=== PATIENT | female | born 1930 | race Caucasian/White ===

== ENCOUNTER 2018-05-01 14:52 | Observation (INO) | payer OTHER ==
[2018-05-01 15:12] VITALS: BMI 44.8
--- NOTE | 2018-05-01 15:35 | PDOC ---
History of Present Illness - General Chief Complaint: Revisit,Radiology Variance Stated Complaint: LOW BACK PAIN Time Seen by Provider: 05/01/18 15:31 - History of Present Illness Initial Comments: 05/01/18 15:36 87 yo F w a hx of HLD, htn, depression, colon cancer, skin cancer, CVA, dementia, hernia repairs, left ankle fracture was sent here by Dr. Rubio to get admitted because a lumbar L1 compression fracture was found on X-ray yesterday. This past Sunday she was engaging in physical activities and was moving items around her house. She says her back pain began after bending down to supervisor opening and picking a heavy bag of clothing from her closet. She is currently experiencing lower midback pain rated 6/10 with mild tingling sensations in both her legs and feet. She has no difficulty in her ability to urinate or move her bowels. She has taken tylenol for the pain. She denies taking any recent steroids. Patient denies recent fevers or other recent traumatic events. She also reports 3 weeks of lower extremity swelling and edema. Denies chest pain, SOB, or any breathing difficulty. 05/01/18 15:37 05/01/18 15:44 05/01/18 15:52 05/01/18 16:09 Past History - Past Medical History Allergies/Adverse Reactions: Allergies Allergy/AdvReac Type Severity Reaction Status Date / Time No Known Allergies Allergy Verified 05/01/18 15:05 Home Medications: Ambulatory Orders Clonazepam [Klonopin] 1 mg PO PRN 07/03/16 Clopidogrel Bisulfate [Plavix] 300 mg PO MOWEFRSA 07/03/16 Pantoprazole Sodium 40 mg PO MOWEFR 07/03/16 Acetaminophen [Tylenol .Regular Strength -] 650 mg PO Q4H PRN #0 tablet Albuterol Sulfate Inhaler - [Ventolin HFA Inhaler -] 1 - 2 inh PO Q4H PRN #1 inhaler 07/08/16 Aspirin [Aspir 81] 81 mg PO MOWEFR 11/14/16 Cholecalciferol (Vitamin D3) [Vitamin D3] 5,000 unit PO DAILY capsule 11/14/16 Anemia: No Asthma: No Cancer: Yes (COLON) Cardiac Disorders: No CVA: Yes (CVA 2009 TIA 1995) COPD: No CHF: No Dementia: No Diabetes: No GI Disorders: Yes (COLON CANCER) Disorders: No HTN: Yes Hypercholesterolemia: Yes Liver Disease: No Seizures: No Thyroid Disease: No Other medical history: BACK PAIN - Surgical History Abdominal Surgery: Yes (HERNIA) Appendectomy: Yes Cardiac Surgery: No Cholecystectomy: No Lung Surgery: No Neurologic Surgery: No Orthopedic Surgery: No - Immunization History Immunization Up to Date: Yes - Suicide/Smoking/Psychosocial Hx Smoking History: Never smoked Have you smoked in the past 12 months: No Hx Alcohol Use: No Drug/Substance Use Hx: No Substance Use Type: None Hx Substance Use Treatment: No Review of Systems - Review of Systems Comments:: 05/01/18 15:58 CONSTITUTIONAL: Absent: fever, chills, diaphoresis, generalized weakness, malaise, loss of appetite HEENT: Absent: rhinorrhea, nasal congestion, throat pain, throat swelling, difficulty swallowing, mouth swelling, ear pain, eye pain, visual Changes CARDIOVASCULAR: Absent: chest pain, syncope, palpitations, irregular heart rate, lightheadedness , peripheral edema RESPIRATORY: Absent: cough, shortness of breath, dyspnea with exertion, orthopnea, wheezing, stridor, hemoptysis GASTROINTESTINAL: Positive: Abdominal pain, abdominal distension. Absent: nausea, vomiting, diarrhea, constipation, melena, hematochezia GENITOURINARY: Absent: dysuria, frequency, urgency, hesitancy, hematuria, flank pain, genital pain MUSCULOSKELETAL: Positive: Left leg pain, back pain, ankle swelling Absent: myalgia, arthralgia SKIN: Absent: rash, itching, pallor HEMATOLOGIC/IMMUNOLOGIC: Absent: easy bleeding, easy bruising, lymphadenopathy, frequent infections ENDOCRINE: Absent: unexplained weight gain, unexplained weight loss, heat intolerance, cold intolerance NEUROLOGIC: Positive: paresthesias Absent: headache, focal weakness dizziness, unsteady gait, seizure, mental status changes, bladder or bowel incontinence PSYCHIATRIC: Absent: anxiety, depression, suicidal or homicidal ideation, hallucinations. *Physical Exam - Vital Signs Last Vital Signs Temp Pulse Resp BP Pulse Ox 98.6 F 88 18 170/80 92 L 05/01/18 14:53 05/01/18 14:53 05/01/18 14:53 05/01/18 14:53 05/01/18 14:53 - Physical Exam Comments: 05/01/18 16:00 Back: There is spinal TTP around the L1 vertebrae. No sacral or thoracic TTP. GENERAL: Well developed, well nourished. Awake and alert. No acute distress. HEENT: Normocephalic, atraumatic. PERRLA, EOMI. No conjunctival pallor. Sclera are non- icteric. Moist mucous membranes. Oropharynx is clear. NECK: Supple. Full ROM. No JVD. Carotid pulses 2+ and symmetric, without bruits. No thyromegaly. No lymphadenopathy. CARDIOVASCULAR: Regular rate and rhythm. No murmurs, rubs, or gallops. Distal pulses are 2+ and symmetric. PULMONARY: No evidence of respiratory distress. Lungs clear to auscultation bilaterally. No wheezing, rales or rhonchi. ABDOMINAL: Abdomen is mildly tender and mildly distended. She has no rebound or guarding. No organomegaly. Normoactive bowel sounds. MUSCULOSKELETAL Normal range of motion at all joints. No bony deformities or tenderness. No CVA tenderness. EXTREMITIES: There is bilateral ankle and wrist swelling with 1+ edema. No cyanosis. No clubbing. No calf tenderness. SKIN: Warm and dry. Normal capillary refill. No rashes. No jaundice. NEUROLOGICAL: CN 2-12 grossly intact. Alert, awake, appropriate. No motor deficits in the in face, upper extremities and lower extremities. Normal speech. Toes are down-going bilaterally. Gait is normal without ataxia. PSYCHIATRIC: Cooperative. Good eye contact. Appropriate mood and affect. ED Treatment Course - LABORATORY CBC & Chemistry Diagram: 05/01/18 15:35 05/01/18 15:35 Medical Decision Making - Medical Decision Making 05/01/18 16:04 87 yo F w a pmh of hlp, htn, depression, colon cancer, skin cancer, stroke with residual weakness, dementia, hernia repairs, and ankle fracture here with a compression fracture found on outpatient X-ray. She was sent in by Dr. Rubio to get a CT scan and get admitted. To the best of the patient's knowledge her cancers are in remission. There is concern for new or recurring malignancy given her possible compression fracture. Given the mechanism, of lifting a heavy bag of clothing, we want to rule out whether this was a traumatic fracture or a pathologic fracture. Plan basic labs, CT scan to assess for possible metastatic lesions and assess other thoracic, lumbar and sacral vertebrae, admit. 05/01/18 16:05 05/01/18 16:11 *DC/Admit/Observation/Transfer Diagnosis at time of Disposition: Compression fracture - Discharge Dispostion Condition at time of disposition: Stable Decision to Admit order: Yes - Referrals Referrals: Yolie Rubio MD [Primary Care Provider] - - Patient Instructions - Post Discharge Activity
[2018-05-01 15:40] LABS: BASO % 1.9 % (0-2.0); EOS % 3.5 % (0-4.5); HEMATOCRIT 38.7 % (32.4-45.2); HEMOGLOBIN 12.8 GM/dl (10.7-15.3); LYMPH % 32.6 % (8-40); MCH 27.3 pg (25.7-33.7); MEAN CELL VOLUME 82.6 fl (80-96); MEAN PLT VOLUME 8.3 fl (7.5-11.1); MONO % 6.8 % (3.8-10.2); NEUT % 55.2 % (42.8-82.8); PLATELET COUNT 268 K/MM3 (134-434); RBC 4.68 M/mm3 (3.60-5.2); RDW 14.5 % (11.6-15.6); WHITE BLOOD COUNT 10.9 K/mm3 (4.0-10.8)
[2018-05-01] MEDS ORDERED: oxyCODONE HCL 5 MG TABLET PO ONE (15:51)
--- NOTE | 2018-05-01 15:51 | PDOC ---
Attending Attestation - HPI HPI: 05/01/18 15:52 Alex Grayson - 87 year old female with PMHx of hlp, htn, depression, colon cancer, skin cancer, stroke with residual weakness, dementia, hernia repairs presenting with back and hip pain, XR lumbar spine 04/30/18 significant for L1 compression fracture and L4/5 subluxation and lordosis. The patients daughter describes her pain as localized to the mid-spinal, lumbar and ranking a 5/10. Approximately 4 days ago, the patient was bending down and moving a heavy bag of clothes in her closer when her symptoms onset. She denies any urinary and bowel incontinence. She denies any recent chest pain or shortness of breath. She denies any recent fever, chills, nausea, or vomiting. The patient visited her PCP yesterday for her symptoms and had an x-ray and lab work done. The patient was sent in by her PCP, Dr. Rubio, for a CT spine, admission, and further evaluation. ROS is positive for lumbar back pain and paresthesias. Allergies: NKA Past surgical history: Hernia repair and appendectomy. Social history: Nonsmoker. Denies EtOH use and recreational drug use. Primary Care Physician: Dr. Rubio - Physicial Exam PE: 05/01/18 15:52 General: Well appearing, awake and alert, NAD. HEENT: NCAT, PERRL, EOMI, clear conjunctiva, anicteric, moist mucus membranes, clear oropharynx, no oral lesions.. Neck: neck supple, FROM Chest: no chest wall tenderness Resp: CTAB, normal and even respirations, no respiratory distress CVS: RRR, 2+ peripheral pulses throughout, 3+ bilateral pitting peripheral edema Abdomen: soft, NTND Back: normal inspection and ROM, +Lumbar spine midline tenderness MSK: bilateral pitting pretibial edema, ONEIL x4, ROM intact. No clubbing or cyanosis. normal bulk and tone. Neuro: alert, oriented appropriately; no focal neurologic deficits. SILT, 5/5 distal and prox strength in all extrem. Skin: warm and well perfused, cap refill <2 sec, normal color <Horace Vigil - Last Filed: 05/01/18 15:52> - Resident Resident Name: Wang King - ED Attending Attestation I have performed the following: I have examined & evaluated the patient, The case was reviewed & discussed with the resident, I agree w/resident's findings & plan, Exceptions are as noted - Medical Decision Making 05/01/18 15:49 A portion of this note was documented by scribe services under my direction. I have reviewed the details of the note, within reason, and agree with the documentation with the following case summary and management plan written by me. MDM: Alex Grayson - 87 year old female with PMHx of hlp, htn, depression, colon cancer, skin cancer, stroke with residual weakness, dementia, hernia repairs presenting with back and hip pain, XR lumbar spine 04/30/18 significant for L1 compression fracture and L4/5 subluxation and lordosis. Vital signs stable, pain to be controlled additionally with PO oxycodone. SpO2 92% on RA, but no respiratory distress, lungs clear, will check CXR and repeat VS. CBC and CMP yesterday reviewed, mild hyponatremia, but otherwise wnl. order admission CXR/EKG. UA neg for infection, f/u cultures from yesterday. spoke with Dr. Rubio directly over phone, agree to additional imaging with prior L spine XR +L1 compression fx, possibly pathologic fx given minor trauma. will order for CT T and L spine to assess concurrent injuries, will need brace and ortho/spine cs as inpatient. lower suspicion for cauda equina/cord compression as gait stable, no focal neuro deficits and no red flag s/s. admit to hospitalist, stable for floors. 05/01/18 16:09 <Earline Salamanca - Last Filed: 05/01/18 16:10> Attestations - Attestations 05/01/18 15:52 Documentation prepared by Horace Vigil, acting as director of medical staff services for Emergency Dept,[facility]. <Horace Vigil - Last Filed: 05/01/18 15:52>
[2018-05-01 15:59] LABS: ALBUMIN 3.7 g/dl (3.5-5.0); ALK PHOS 105 U/L (32-92); ANION GAP 5 (8-16); BILIRUBIN,TOTAL 0.8 mg/dl (0.2-1.0); BLOOD UREA NITROGEN 15 mg/dl (7-18); CALCIUM 8.5 mg/dl (8.4-10.2); CHLORIDE 105 mmol/L (98-107); CO2 24 mmol/L (22-28); CREATININE 0.9 mg/dl (0.6-1.3); GLUCOSE,RANDOM 116 mg/dl (74-106); POTASSIUM 4.2 mmol/L (3.5-5.1); SGOT/AST 38 U/L (10-42); SGPT/ALT 23 U/L (10-40); SODIUM 134 mmol/L (136-145); TOT PROT 6.8 g/dl (6.4-8.3)
[2018-05-01] MEDS ORDERED: clonazePAM 2 MG TABLET PO PRN (16:00)
[2018-05-01] MEDS ORDERED: CLOPIDOGREL BISULFATE 300 MG TABLET PO SCH ×2 (16:00→16:27)
[2018-05-01] MEDS ORDERED: CLOPIDOGREL BISULFATE 75 MG TABLET (FP) PO SCH (16:34)
--- NOTE | 2018-05-01 20:35 | HP ---
CHIEF COMPLAINT: Lumbar Pain, Lower Extremity Swelling PCP: Dr. Rubio HISTORY OF PRESENT ILLNESS: This is a 87 y/o woman with a PMHx of: HLD, HTN Depression, Colon Ca (colon resection), Skin Ca, CVA (no residuals), Dementia, Hernia Repairs, Left Ankle fx. Who presents to the ED with her daughters sent in by Dr. Rubio for admission L1 Compression Fx which was found on X-ray yesterday. Per the daughters, the patient began having lumbar pain after bending and picking up a heavy bag of clothes. Per the daughters, the patient also has had increased swelling to B/L LE, increased pain to her knees and legs. Patient denies bowel, bladder incontinence, numbness, tingling. Patient denies fever, chills, CP, palpitations, AP, N/V/D, constipation. ER course was notable for: (1) WBC 10.9 (2) NA 130 (3) Recent Travel: None PAST MEDICAL HISTORY: See HPI PAST SURGICAL HISTORY: See HPI Social History: Smoking: Never Alcohol: None Drugs: None Resides with daughter Family History: Sister- Anemia Allergies No Known Allergies Allergy (Verified 05/01/18 15:05) HOME MEDICATIONS: Home Medications Medication Instructions Recorded Clonazepam [Klonopin] 1 mg PO PRN 07/03/16 Pantoprazole Sodium 40 mg PO MOWEFR 07/03/16 Acetaminophen [Tylenol .Regular 650 mg PO Q4H PRN #0 tablet 07/07/16 Strength -] Albuterol Sulfate Inhaler - 1 - 2 inh PO Q4H PRN #1 inhaler 07/08/16 [Ventolin HFA Inhaler -] Aspirin [Aspir 81] 81 mg PO MOWEFR 11/14/16 Cholecalciferol (Vitamin D3) 5,000 unit PO DAILY capsule 11/14/16 [Vitamin D3] Clopidogrel Bisulfate [Clopidogrel] 75 mg PO MOWEFRSA 05/01/18 REVIEW OF SYSTEMS CONSTITUTIONAL: Absent: fever, chills, diaphoresis, generalized weakness, malaise, loss of appetite, weight change HEENT: Absent: rhinorrhea, nasal congestion, throat pain, throat swelling, difficulty swallowing, mouth swelling, ear pain, eye pain, visual changes CARDIOVASCULAR: peripheral edema Absent: chest pain, syncope, palpitations, irregular heart rate, lightheadedness RESPIRATORY: cough, shortness of breath Absent: dyspnea with exertion, orthopnea, wheezing, stridor, hemoptysis GASTROINTESTINAL: Absent: abdominal pain, abdominal distension, nausea, vomiting, diarrhea, constipation, melena, hematochezia GENITOURINARY: Absent: dysuria, frequency, urgency, hesitancy, hematuria, flank pain, genital pain MUSCULOSKELETAL: arthralgia, joint swelling, back pain Absent: myalgia, neck pain SKIN: Absent: rash, itching, pallor HEMATOLOGIC/IMMUNOLOGIC: Absent: easy bleeding, easy bruising, lymphadenopathy, frequent infections ENDOCRINE: Absent: unexplained weight gain, unexplained weight loss, heat intolerance, cold intolerance NEUROLOGIC: Absent: headache, focal weakness or paresthesias, dizziness, unsteady gait, seizure, mental status changes, bladder or bowel incontinence PSYCHIATRIC: Absent: anxiety, depression, suicidal or homicidal ideation, hallucinations. PHYSICAL EXAMINATION Vital Signs - 24 hr 05/01/18 05/01/18 05/01/18 14:53 17:01 17:20 Temperature 98.6 F 98.6 F Pulse Rate 88 76 Pulse Rate [ 76 Right Radial] Respiratory 18 18 18 Rate Blood Pressure 170/80 134/60 Blood Pressure 134/60 [Left Arm] O2 Sat by Pulse 92 L 93 L 93 L Oximetry (%) 05/01/18 18:16 Temperature 98.6 F Pulse Rate 79 Pulse Rate [ Right Radial] Respiratory 16 Rate Blood Pressure 129/48 Blood Pressure [Left Arm] O2 Sat by Pulse Oximetry (%) GENERAL: Obese, awake, alert, at baseline, in no acute distress. HEAD: Normal with no signs of trauma. EYES: Pupils equal, round and reactive to light, extraocular movements intact, sclera anicteric, conjunctiva clear. No lid lag. EARS, NOSE, THROAT: Ears normal, nares patent, oropharynx clear without exudates. Moist mucous membranes. NECK: Normal range of motion, supple without lymphadenopathy, JVD, or masses. LUNGS: Breath sounds equal, clear to auscultation bilaterally. No wheezes, and no crackles. No accessory muscle use. HEART: Regular rate and rhythm, normal S1 and S2 without murmur, rub or gallop. ABDOMEN: Soft, nontender, not distended, normoactive bowel sounds, no guarding, no rebound, no masses. No hepatomegaly or splenomegaly. MUSCULOSKELETAL: Normal range of motion at all joints. No bony deformities or No CVA tenderness. +tenderness L- hip UPPER EXTREMITIES: 2+ pulses, warm, well-perfused. No cyanosis. No clubbing. No peripheral edema. LOWER EXTREMITIES: 2+ pulses, warm, well-perfused. No calf tenderness. +2 pitting L>R peripheral edema. NEUROLOGICAL: Cranial nerves II-XII intact. Normal speech. Gait not observed. PSYCHIATRIC: Cooperative. Good eye contact. Appropriate mood and affect. SKIN: Warm, dry, normal turgor, no rashes or lesions noted, normal capillary refill. Laboratory Results - last 24 hr 05/01/18 05/01/18 15:35 15:35 WBC 10.9 H RBC 4.68 Hgb 12.8 Hct 38.7 MCV 82.6 MCH 27.3 MCHC 33.0 RDW 14.5 Plt Count 268 MPV 8.3 Absolute Neuts (auto) 6.0 Neutrophils % 55.2 Lymphocytes % 32.6 Monocytes % 6.8 Eosinophils % 3.5 Basophils % 1.9 Sodium 134 L Potassium 4.2 Chloride 105 Carbon Dioxide 24 Anion Gap 5 L BUN 15 Creatinine 0.9 Creat Clearance w eGFR 59.09 Random Glucose 116 H D Calcium 8.5 Total Bilirubin 0.8 AST 38 ALT 23 Alkaline Phosphatase 105 H Total Protein 6.8 Albumin 3.7 ASSESSMENT/PLAN: 87 y/o woman placed in Observation for Lumbar Pain secondary to L1 Compression Fx for further evaluation of their emergent condition. Plan: 1. Lumbar Pain- secondary to L1 Compression Fx, Appreciate Ortho Consult, Appreciate Spinal Surgical consult, CT- Lumbar Spine-pending, No cauda equina noted, will do neurovascular checks, monitor vitals, Consider STR. 2. Lower Extremity Edema- ? CHF, Chest Xray- congestive changes, possible right upper lobe/left base infiltrate, on exam +2 pitting to LE, Lasix iV x1 now, strict INOs, BNP in am, monitor CBC, BMP, consider Cardiology consult if condition worsens. 3. Hypertension- stable, continue home meds, monitor renal function 4. HLD- stable, continue home meds 5. Dementia, Depression- continue home meds, fall precautions 6. CVA- stable, no residuals noted, Fall Precautions 7. Colon Ca- s/p Colon Resection, in remission per daughters 8. FEN- Fluid Restriction 1L, Replete lytes prn, Low Na Diet 9. DVT ppx- SCDs, Heparin SQ Code Status: Full Code Dispo: Observation Problem List - Problem (1) Compression fracture Code(s): [id number] - (2) Lumbar pain Code(s): M54.5 - LOW BACK PAIN (3) Lower extremity edema Code(s): R60.0 - LOCALIZED EDEMA (4) Dementia Code(s): F03.90 - UNSPECIFIED DEMENTIA WITHOUT BEHAVIORAL DISTURBANCE (5) Depression Code(s): F32.9 - MAJOR DEPRESSIVE DISORDER, SINGLE EPISODE, UNSPECIFIED (6) HLD (hyperlipidemia) Code(s): E78.5 - HYPERLIPIDEMIA, UNSPECIFIED (7) CVA, old, alterations of sensations Code(s): I69.398 - OTHER SEQUELAE OF CEREBRAL INFARCTION; R20.9 - UNSPECIFIED DISTURBANCES OF SKIN SENSATION (8) Hypertension Code(s): I10 - ESSENTIAL (PRIMARY) HYPERTENSION Visit type - Emergency Visit Emergency Visit: Yes ED Registration Date: 05/01/18 Care time: The patient presented to the Emergency Department on the above date and was hospitalized for further evaluation of their emergent condition. - New Patient This patient is new to me today: Yes Date on this admission: 05/01/18 - Critical Care Critical Care patient: No Hospitalist Screening - Colonoscopy Questionnaire Colonoscopy Questionnaire: Colonoscopy Questionnaire - Patient: 50 - 75 years old and never had a screening colonoscopy: Unknown History of colon or rectal polyps, or CA: Unknown History of IBD, Crohn's disease or UC: Unknown History of abdominal radiation therapy as a child: Unknown - Relative: 1 with colon or rectal CA, or polyps at age 60 or younger: Unknown Colon or rectal CA diagnosed at age 45 or younger: Unknown Multiple relatives with colon or rectal CA: Unknown - Outcome: Screening Result: Negative Screen
[2018-05-01] MEDS: HEPARIN NA (PORCINE) 5,000 UNITS/ML 1ML VIAL SQ SCH (21:49)
[2018-05-01] MEDS ORDERED: FUROSEMIDE 20 MG TABLET (FP) PO ONE (22:30)
[2018-05-02 05:16] LABS: URINE APPEARANCE CLEAR; URINE BILIRUBIN NEGATIVE (<2.0 mg/dL); URINE COLOR COLORLESS; URINE GLUCOSE (UA) NEGATIVE (NEGATIVE); URINE KETONE NEGATIVE (NEGATIVE); URINE LEUK ESTERASE NEGATIVE (NEGATIVE); URINE NITRITE NEGATIVE (NEGATIVE); URINE PROTEIN NEGATIVE (NEGATIVE); URINE UROBILINOGEN NEGATIVE mg/dL (0.2-1.0)
--- NOTE | 2018-05-02 07:43 | PN ---
Physical Exam: SUBJECTIVE: Patient seen and examined OBJECTIVE: Vital Signs Period Temp Pulse Resp BP Sys/Orellana Pulse Ox Last 24 Hr 98.3 F-98.9 F 64-88 16-18 113-170/47-80 92-95 GENERAL: The patient is awake, alert, and fully oriented, in no acute distress. HEAD: Normal with no signs of trauma. EYES: PERRL, extraocular movements intact, sclera anicteric, conjunctiva clear. No ptosis. ENT: Ears normal, nares patent, oropharynx clear without exudates, moist mucous membranes. NECK: Trachea midline, full range of motion, supple. LUNGS: Breath sounds equal, clear to auscultation bilaterally, no wheezes, no crackles, no accessory muscle use. HEART: Regular rate and rhythm, S1, S2 without murmur, rub or gallop. ABDOMEN: Soft, nontender, nondistended, normoactive bowel sounds, no guarding, no rebound, no hepatosplenomegaly, no masses. EXTREMITIES: 2+ pulses, warm, well-perfused, no edema. NEUROLOGICAL: Cranial nerves II through XII grossly intact. Normal speech, gait not observed. PSYCH: Normal mood, normal affect. SKIN: Warm, dry, normal turgor, no rashes or lesions noted Laboratory Results - last 24 hr 05/01/18 05/01/18 05/02/18 15:35 15:35 02:42 WBC 10.9 H RBC 4.68 Hgb 12.8 Hct 38.7 MCV 82.6 MCH 27.3 MCHC 33.0 RDW 14.5 Plt Count 268 MPV 8.3 Absolute Neuts (auto) 6.0 Neutrophils % 55.2 Lymphocytes % 32.6 Monocytes % 6.8 Eosinophils % 3.5 Basophils % 1.9 Sodium 134 L Potassium 4.2 Chloride 105 Carbon Dioxide 24 Anion Gap 5 L BUN 15 Creatinine 0.9 Creat Clearance w eGFR 59.09 Random Glucose 116 H D Calcium 8.5 Total Bilirubin 0.8 AST 38 ALT 23 Alkaline Phosphatase 105 H Total Protein 6.8 Albumin 3.7 Urine Color Colorless Urine Appearance Clear Urine pH 6.0 Ur Specific [place] 1.005 Urine Protein Negative Urine Glucose (UA) Negative Urine Ketones Negative Urine Blood Negative Urine Nitrite Negative Urine Bilirubin Negative Urine Urobilinogen Negative Ur Leukocyte Esterase Negative Active Medications Generic Name Dose Route Start Last Admin Trade Name Freq PRN Reason Stop Dose Admin Aspirin 81 mg 05/03/18 10:00 Ecotrin - PO MoWeFr@1000 PENDING SALE TO [facility] Clonazepam 1 mg 05/01/18 16:00 Klonopin - PO DAILY PRN Clopidogrel Bisulfate 75 mg 05/01/18 16:34 05/01/18 16:47 Plavix - PO Not Given MoWeFrSa PENDING SALE TO [facility] Heparin Sodium (Porcine) 5,000 unit 05/01/18 22:00 05/01/18 21:49 Heparin - SQ 5,000 unit BID PENDING SALE TO [facility] Administration Pantoprazole Sodium 40 mg 05/03/18 10:00 Protonix - PO MoWeFr@1000 PENDING SALE TO [facility] Paroxetine HCl 30 mg 05/02/18 10:00 Paxil - PO DAILY PENDING SALE TO [facility] ASSESSMENT/PLAN:
[2018-05-02 08:14] LABS: BASO % 0.2 % (0-2.0); EOS % 4.3 % (0-4.5); HEMATOCRIT 38.7 % (32.4-45.2); HEMOGLOBIN 12.8 GM/dl (10.7-15.3); LYMPH % 27.3 % (8-40); MCH 27.4 pg (25.7-33.7); MCHC 33.2 g/dl (32.0-36.0); MEAN CELL VOLUME 82.5 fl (80-96); MEAN PLT VOLUME 9.4 fl (7.5-11.1); MONO % 6.7 % (3.8-10.2); NEUT % 61.5 % (42.8-82.8); PLATELET COUNT 261 K/MM3 (134-434); RBC 4.69 M/mm3 (3.60-5.2); RDW 14.8 % (11.6-15.6); WHITE BLOOD COUNT 7.9 K/mm3 (4.0-10.8)
[2018-05-02 08:29] LABS: ALBUMIN 3.7 g/dl (3.5-5.0); ALK PHOS 97 U/L (32-92); ANION GAP 9 (8-16); BILIRUBIN,TOTAL 0.9 mg/dl (0.2-1.0); BLOOD UREA NITROGEN 15 mg/dl (7-18); CALCIUM 8.8 mg/dl (8.4-10.2); CHLORIDE 99 mmol/L (98-107); CO2 26 mmol/L (22-28); CREATININE 0.8 mg/dl (0.6-1.3); GLUCOSE,RANDOM 112 mg/dl (74-106); SGOT/AST 36 U/L (10-42); SGPT/ALT 25 U/L (10-40); SODIUM 134 mmol/L (136-145); TOT PROT 6.8 g/dl (6.4-8.3)
--- NOTE | 2018-05-02 08:42 | CON.ORTH ---
Consult Reason for Consultation:: L1 compression fx - Alcohol/Substance Use Hx Alcohol Use: No - Smoking History Smoking history: Never smoked Have you smoked in the past 12 months: No Home Medications - Allergies Allergies/Adverse Reactions: Allergies Allergy/AdvReac Type Severity Reaction Status Date / Time No Known Allergies Allergy Verified 05/01/18 15:05 - Home Medications Home Medications: Ambulatory Orders Clonazepam [Klonopin] 1 mg PO PRN 07/03/16 Pantoprazole Sodium 40 mg PO MOWEFR 07/03/16 Acetaminophen [Tylenol .Regular Strength -] 650 mg PO Q4H PRN #0 tablet Albuterol Sulfate Inhaler - [Ventolin HFA Inhaler -] 1 - 2 inh PO Q4H PRN #1 inhaler 07/08/16 Aspirin [Aspir 81] 81 mg PO MOWEFR 11/14/16 Cholecalciferol (Vitamin D3) [Vitamin D3] 5,000 unit PO DAILY capsule 11/14/16 Clopidogrel Bisulfate [Clopidogrel] 75 mg PO MOWEFRSA 05/01/18 Physical Exam for Ortho Vital Signs: Vital Signs Temperature 98.9 F 05/02/18 05:00 Pulse Rate 73 05/02/18 05:00 Respiratory Rate 18 05/02/18 05:00 Blood Pressure 120/47 05/02/18 05:00 O2 Sat by Pulse Oximetry (%) 95 05/01/18 21:30 Labs: CBC, BMP 05/02/18 07:30 05/02/18 07:30 - Lower Extremity Pelvis: Yes: Exam WNL Hip: Yes: Exam WNL Other Findings/Remarks: LS spine- minimal ttp over paraspinals, decr rom in all, planes, -SLR, nvi Imaging - Results X-ray: Report Reviewed, Image Reviewed Cat Scan: Image Reviewed Assessment/Plan 87 y/o woman with a PMHx of: HLD, HTN Depression, Colon Ca (colon resection), Skin Ca, CVA (no residuals), Dementia, Hernia Repairs, Left Ankle fx. Who presents to the ED with her daughters sent in by Dr. Rubio for admission L1 Compression Fx which was found on X-ray yesterday. Per the daughters, the patient began having lumbar pain after bending and picking up a heavy bag of clothes. Pts familt states that she had a fx in her lower back 3 years ago. Denies any recent falls/trauma. denies any bowel/bladder dysfunction/saddle anesthesia. a/p- L1 comrpession fx- most likely chronic, L4-5 spondy D/w with pt and daughters in detail PT eval wbat f/u CT report ok to d/c from ortho pov d/w Dr. Dudley
[2018-05-02] MEDS: HEPARIN NA (PORCINE) 5,000 UNITS/ML 1ML VIAL SQ SCH (09:37)
[2018-05-02] MEDS ORDERED: PARoxetine HCL 20 MG TABLET (FP) PO SCH (10:00)
--- NOTE | 2018-05-02 13:39 | ECHO ---
Name: LINDY OAKLEY Exam:Adult Echocardiogram Study Date: 05/02/2018 11:18 AM Age: 87 yrs Reason For Study: EDEMA MMode/2D Measurements & Calculations IVSd: 1.1 cm Ao root diam: 2.5 cm LVIDd: 3.5 cm LA dimension: 3.0 cm LVIDs: 2.2 cm LVPWd: 0.98 cm EDV(Teich): 50.4 ml LVOT diam: 2.0 cm ESV(Teich): 17.0 ml Doppler Measurements & Calculations MV E max mayela: 46.2 cm/sec TR max mayela: 252.8 cm/sec MV A max mayela: 120.0 cm/sec TR max P.6 mmHg MV E/A: 0.39 Procedure A complete two-dimensional transthoracic echocardiogram was performed (2D, M-mode, Doppler and color flow Doppler). The study was technically limited with all images being suboptimal in quality. Left Ventricle The left ventricular size, thickness and function are normal. The left ventricular ejection fraction is normal. Ejection Fraction = 65-70%. Regional wall motion abnormalities cannot be excluded due to limi jason visualization. Right Ventricle The right ventricle is not well visualized. Atria The left atrial size is normal. Right atrium not well visualized. Mitral Valve There is no mitral regurgitation noted. Tricuspid Valve There is trace tricuspid regurgitation. Right ventricular systolic pressure is normal. Aortic Valve No hemodynamically significant valvular aortic stenosis. No aortic regurgitation is present. Pulmonic Valve The pulmonic valve is not well visualized. Great Vessels The aortic root is normal size. Pericardium/Pleura There is no pericardial effusion. Interpretation Summary The study was technically limited with all images being suboptimal in quality. The left ventricular size, thickness and function are normal. The right ventricle is not well visualized. There is trace tricuspid regurgitation. MD Anil Doyle 05/02/2018 01:39 PM
--- NOTE | 2018-05-02 14:32 | EKG ---
Test Reason : Blood Pressure : / mmHG Vent. Rate : 076 BPM Atrial Rate : 076 BPM P-R Int : 182 ms QRS Dur : 080 ms QT Int : 384 ms P-R-T Axes : 039 005 063 degrees QTc Int : 432 ms NORMAL SINUS RHYTHM CANNOT RULE OUT INFERIOR INFARCT , AGE UNDETERMINED ABNORMAL ECG WHEN COMPARED WITH ECG OF 23-AUG-2001 11:59, PREMATURE VENTRICULAR COMPLEXES ARE NO LONGER PRESENT NONSPECIFIC T WAVE ABNORMALITY NOW EVIDENT IN LATERAL LEADS Confirmed by ASHER ROMO MD ([id number]) on 05/02/2018 2:32:12 PM Referred By: MD BURGOS Confirmed By:ASHER ROMO MD
[2018-05-02 14:34] VITALS: BP 131/65; PULSE 83; TEMP 98.7
--- NOTE | 2018-05-02 14:43 | DS ---
Physical Exam: SUBJECTIVE: Patient seen and examined, patient is ambulatory at bedside, reports minimal pain to the back, denies any chest pain or shortness of breath. Once to go home. 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 Who presents to the ED with her daughters sent in by Dr. Rubio for admission L1 Compression Fx which was found on X-ray yesterday. Per the daughters, the patient began having lumbar pain after bending and picking up a heavy bag of clothes. Per the daughters, the patient also has had increased swelling to B/L LE, increased pain to her knees and legs. Patient denies bowel, bladder incontinence, numbness, tingling. Patient denies fever, chills, CP, palpitations, AP, N/V/D, constipation. ER course was notable for: (1) WBC 10.9 (2) NA 130 Vital Signs Period Temp Pulse Resp BP Sys/Orellana Pulse Ox Last 24 Hr 98.3 F-98.9 F 64-88 16-19 113-170/47-80 92-95 PHYSICAL EXAM GENERAL: The patient is awake, alert, and fully oriented, in no acute distress. HEAD: Normal with no signs of trauma. EYES: PERRL, extraocular movements intact, sclera anicteric, conjunctiva clear. ENT: Ears normal, nares patent, oropharynx clear without exudates, moist mucous membranes. NECK: Trachea midline, full range of motion, supple. LUNGS: Breath sounds equal, clear to auscultation bilaterally, no wheezes, no crackles, no accessory muscle use. HEART: Regular rate and rhythm, S1, S2 without murmur, rub or gallop. ABDOMEN: Soft, nontender, nondistended, normoactive bowel sounds, no guarding, no rebound, no hepatosplenomegaly, no masses. EXTREMITIES: 2+ pulses, warm, well-perfused, trace edema, multiple varicosities lower extremity venous stasis changes. MUSCULOSKELETAL: paraspinal tenderness noted to L1, no erythema noted NEUROLOGICAL: Cranial nerves II through XII grossly intact. Normal speech, gait not observed. PSYCH: Normal mood, normal affect. SKIN: Warm, dry, normal turgor, no rashes or lesions noted. LABS Laboratory Results - last 24 hr 05/01/18 05/01/18 05/02/18 15:35 15:35 02:42 WBC 10.9 H RBC 4.68 Hgb 12.8 Hct 38.7 MCV 82.6 MCH 27.3 MCHC 33.0 RDW 14.5 Plt Count 268 MPV 8.3 Absolute Neuts (auto) 6.0 Neutrophils % 55.2 Lymphocytes % 32.6 Monocytes % 6.8 Eosinophils % 3.5 Basophils % 1.9 Sodium 134 L Potassium 4.2 Chloride 105 Carbon Dioxide 24 Anion Gap 5 L BUN 15 Creatinine 0.9 Creat Clearance w eGFR 59.09 Random Glucose 116 H D Calcium 8.5 Total Bilirubin 0.8 AST 38 ALT 23 Alkaline Phosphatase 105 H B-Natriuretic Peptide Total Protein 6.8 Albumin 3.7 Urine Color Colorless Urine Appearance Clear Urine pH 6.0 Ur Specific D Hanis 1.005 Urine Protein Negative Urine Glucose (UA) Negative Urine Ketones Negative Urine Blood Negative Urine Nitrite Negative Urine Bilirubin Negative Urine Urobilinogen Negative Ur Leukocyte Esterase Negative 05/02/18 05/02/18 05/02/18 07:30 07:30 07:30 WBC 7.9 RBC 4.69 Hgb 12.8 Hct 38.7 MCV 82.5 MCH 27.4 MCHC 33.2 RDW 14.8 Plt Count 261 MPV 9.4 Absolute Neuts (auto) 5.0 Neutrophils % 61.5 Lymphocytes % 27.3 Monocytes % 6.7 Eosinophils % 4.3 Basophils % 0.2 Sodium 134 L Potassium 4.0 Chloride 99 Carbon Dioxide 26 Anion Gap 9 BUN 15 Creatinine 0.8 Creat Clearance w eGFR > 60 Random Glucose 112 H Calcium 8.8 Total Bilirubin 0.9 AST 36 ALT 25 Alkaline Phosphatase 97 H B-Natriuretic Peptide 253.83 Total Protein 6.8 Albumin 3.7 Urine Color Urine Appearance Urine pH Ur Specific D Hanis Urine Protein Urine Glucose (UA) Urine Ketones Urine Blood Urine Nitrite Urine Bilirubin Urine Urobilinogen Ur Leukocyte Esterase Imaging CTlumbar spine without contrast; T12-L1, compression fracture involving disappearing endplate of L1 no central spinal canal stenosis no renal stones or hydronephrosis, unremarkable contour of the abdominal aorta, L5-S1, minimal degenerative anterior spondylolisthesis of L5 on S1 CT of thoracic spine: no vertebral body fractures noted chronic bilateral lung disease noted echo: EF 65-70% trace TR HOSPITAL COURSE: patient was admitted immediately from the emergency department to observation for management in regards to L1 compression fracture. Patient was consulted by orthopedics. Physical therapy evaluation completed home restorative services recommended. Patient was noted to have lower extremity edema upon arrival, chest x-ray resulted as questionable congestive changes. repeat chest x-ray 05/02/2018 AP and lateral, congestive changes diminished. Patient does have a known history of chronic interstitial lung disease. Lower extremity edema likely secondary to venous stasis changes BNP WNL. pLAN: - LENGTHY DISCUSSION WITH DAUGHTER AT BEDSIDE, RECOMMEND STRICT FOLLOW-UP WITH PACKAGING LINE OPERATOR AND PRIMARY CARE PHYSICIAN FOR PHYSICAL THERAPY - pRESCRIPTION GIVEN FOR COMPRESSION STOCKINGS, DISCUSSED WITH DAUGHTER AT LENGTH RETURN PRECAUTIONS iE CHEST PAIN SHORTNESS OF BREATH OR DYSPNEA ON EXERTION PATIENT MUST RETURN TO EMERGENCY DEPARTMENT. - PLAN DISCUSSED WITH PRIMARY CARE PHYSICIAN DR. WETZEL Date of Admission:05/01/18 Date of Discharge: 05/02/18 Minutes to complete discharge: 45 Discharge Summary Reason For Visit: COMPRESSION FRACTURE Current Active Problems Compression fracture (Acute) Dementia (Acute) Depression (Acute) HLD (hyperlipidemia) (Acute) Lower extremity edema (Acute) Lumbar pain (Acute) Condition: Stable - Instructions Referrals: Yolie Rubio MD [Primary Care Provider] - - Home Medications Comprehensive Discharge Medication List: Ambulatory Orders Clonazepam [Klonopin] 1 mg PO PRN 07/03/16 Pantoprazole Sodium 40 mg PO MOWEFR 07/03/16 Acetaminophen [Tylenol .Regular Strength -] 650 mg PO Q4H PRN #0 tablet Albuterol Sulfate Inhaler - [Ventolin HFA Inhaler -] 1 - 2 inh PO Q4H PRN #1 inhaler 07/08/16 Aspirin [Aspir 81] 81 mg PO MOWEFR 11/14/16 Cholecalciferol (Vitamin D3) [Vitamin D3] 5,000 unit PO DAILY capsule 11/14/16 Clopidogrel Bisulfate [Clopidogrel] 75 mg PO MOWEFRSA 05/01/18 This patient is new to me today: Yes Date on this admission: 05/02/18 Emergency Visit: Yes ED Registration Date: 05/01/18 Care time: The patient presented to the Emergency Department on the above date and was hospitalized for further evaluation of their emergent condition. Critical Care patient: No - Discharge Referral Referred to [facility] Yes Physician Referral: Mesfin Wetzel MD (Int Med)
[2018-05-03] MEDS ORDERED: PANTOPRAZOLE 40 MG TABLET (FP) PO SCH (10:00)
[2018-05-03] MEDS ORDERED: ASPIRIN COATED 81 MG TABLET.EC PO SCH (10:00)
== END 2018-05-02 14:00 | disposition home health service (06) ==
LOC: FER 14:52 → FM/S 15:38 → UNDOADMOB 17:58
PROVIDERS: ADMIT Internal Medicine; ATTEND Nurse Practitioner Family
PROC: 3E013GC Introduction of Other Therapeutic Substance into Subcutaneous Tissue, Percutaneous Approach (ICD-10-PCS; principal; 2018-05-01)
DX: S32.019A Unspecified fracture of first lumbar vertebra, initial encounter for closed fracture (principal); X58.XXXA Exposure to other specified factors, initial encounter; Y93.89 Activity, other specified; Y92.008 Other place in unspecified non-institutional (private) residence as the place of occurrence of the external cause; I10 Essential (primary) hypertension; I69.398 Other sequelae of cerebral infarction; R20.9 Unspecified disturbances of skin sensation; E78.5 Hyperlipidemia, unspecified; F32.9 Major depressive disorder, single episode, unspecified; F03.90 Unspecified dementia, unspecified severity, without behavioral disturbance, psychotic disturbance, mood disturbance, and anxiety; Z85.038 Personal history of other malignant neoplasm of large intestine; Z85.828 Personal history of other malignant neoplasm of skin; Z79.82 Long term (current) use of aspirin; M54.5 Low back pain; R60.0 Localized edema
CPT/HCPCS: 36415; 71045-TC-FY; 71046-TC-FY; 72128-TC; 72131-TC; 80053; 81003; 83880; 85025; 87086; 93005; 93306-TC; 96372; 97116-GP; 97162-GP; 99283-25; G0378; J1644